=== PATIENT | male | born 1995 | race Caucasian/White ===

== ENCOUNTER 2022-01-06 16:34 | Inpatient (IN) ==
[2022-01-06 18:02] LABS: Basophils # 0.1 K/mcL (0.0-0.2); Basophils % 0.5 %; Eosinophils # 0.2 K/mcL (0.0-0.6); Eosinophils % 1.7 %; Hematocrit 53.7 % (37.5-50.1); Hemoglobin 18.4 g/dL (12.9-16.9); Immature Granulocytes % 0.3 % (0-4); Lymphocytes # 2.2 K/mcL (0.6-4.6); Lymphocytes % 23.6 %; Mean Corpuscular HGB Conc 34.3 g/dL (31.6-35.5); Mean Corpuscular Volume 84.6 fL (83.0-100.0); Mean Platelet Volume 11.5 fL (9.4-12.4); Monocytes # 0.7 K/mcL (0.0-1.3); Monocytes % 7.4 %; Neutrophils # 6.3 K/mcL (1.6-8.9); Platelet Count 286 K/mcL (140-400); Red Blood Count 6.35 M/mcL (4.19-5.50); Red Cell Distribution Width 12.5 % (11.5-14.5); Segmented Neutrophils % 66.5 %; White Blood Count 9.5 K/mcL (4.3-11.1)
[2022-01-06 18:10] LABS: Bacteria,Urine Few per hpf (None-Few); Bilirubin,Urine Small (Negative); Blood,Urine Negative (Negative); Clarity,Urine Clear (Clear); Color,Urine Dark-Yellow (Yellow); Glucose,Urine (UA) Normal (Normal); Ketones,Urine 20 mg/dL (Negative); Leukocyte Esterase,Urine Small (Negative); Mucus,Urine Many per lpf (None-Few); Nitrite,Urine Negative (Negative); Protein,Urine 200 mg/dL (Neg-Trace); RBC,Urine 0-3 per hpf (0-3); Specific Gravity,Urine > 1.030 (1.010-1.025); Squamous Epithelial Cell,Urine Few per hpf (None-Few); Urobilinogen,Urine >=8.0 mg/dL (Normal); WBC,Urine 0-3 per hpf (0-3)
[2022-01-06 18:16] LABS: Amphetamine Screen,Urine Negative ng/mL (Cutoff=1000); Barbiturate Screen,Urine Negative ng/mL (Cutoff=200); Benzodiazepines Screen,Urine Negative ng/mL (Cutoff=200); Cannabinoid Screen,Urine Positive ng/mL (Cutoff = 50); Cocaine Screen,Urine Negative ng/mL (Cutoff= 300); Opiate Screen,Urine Negative ng/mL (Cutoff=300); Phencyclidine Screen,Urine Negative ng/mL (Cutoff=25)
[2022-01-06 18:21] LABS: Acetaminophen < 10 mcg/mL (10-20); Alanine Aminotransferase 20 Units/L (7-52); Albumin/Globulin Ratio 1.7 (1.1-2.2); Alkaline Phosphatase 106 Units/L (34-104); Aspartate Amino Transferase 21 Units/L (13-39); BUN/Creatinine Ratio 12 (6-26); Bilirubin,Direct 0.2 mg/dL (0.0-0.2); Bilirubin,Indirect 0.9 mg/dL (0.0-1.0); Bilirubin,Total 1.1 mg/dL (0.3-1.0); Blood Urea Nitrogen 13 mg/dL (6-20); Calcium 10.1 mg/dL (8.6-10.3); Carbon Dioxide 28 mEq/L (23-29); Chloride 101 mEq/L (98-107); Chol/HDL Ratio 4.6 (0-4.9); Cholesterol 171 mg/dL (< 200); Ethanol < 10 mg/dL (Less than 10); Globulin 2.9 g/dL (2.4-3.5); Glucose 87 mg/dL (70-105); HDL Cholesterol 37 mg/dL (40-59); LDL Cholesterol,Calculated 108 mg/dL (< 100); Osmolality,Calculated 287 (280-300); Potassium 3.5 mEq/L (3.5-5.1); Salicylate < 2.5 mg/dL (15.0-30.0); Sodium 139 mEq/L (136-145); Total Protein 7.9 g/dL (6.4-8.9); Triglycerides 130 mg/dL (< 150); eGFR For African Americans > 60 (> 60); eGFR For Non-African Americans > 60 (> 60)
[2022-01-06] MEDS ORDERED: Nicotine 21 MG PATCH.TD24 TD SCH (19:15)
[2022-01-06 19:17] LABS: Estimated Average Glucose 111 mg/dl; Hemoglobin A1C 5.5 %
[2022-01-06 21:12] LABS: Influenza A PCR Negative (Negative); Influenza B PCR Negative (Negative); Resp. Syncytial Virus PCR Negative (Negative)
[2022-01-06 21:22] LABS: SARS-CoV-2 by PCR (In House) Negative (Negative)
[2022-01-06] MEDS ORDERED: Acetaminophen 325 MG TABLET PO PRN (21:35)
[2022-01-06] MEDS ORDERED: *HR* LORazepam 2 MG/ML VIAL IM PRN (21:35)
[2022-01-06] MEDS ORDERED: haloperidoL 5 MG TABLET PO PRN (21:35)
[2022-01-06] MEDS ORDERED: Haloperidol Lactate 5 MG/ML VIAL IM PRN (21:35)
[2022-01-06] MEDS ORDERED: *HR* LORazepam 1 MG TABLET PO PRN (21:35)
[2022-01-07] MEDS: hydrOXYzine pamoate 25 MG CAPSULE PO PRN ×2 (01:03→15:29)
[2022-01-07] MEDS: traZODone 50 MG TABLET PO PRN ×2 (01:03→21:22)
[2022-01-07] MEDS ORDERED: Mag Hydrox/Al Hydrox/Simeth 30 ML UDC PO PRN (08:03)
[2022-01-07] MEDS ORDERED: MOM Conc 10 ML UD.LIQ PO PRN (08:03)
[2022-01-07] MEDS: Nicotine 21 MG PATCH.TD24 TD SCH (09:34)
[2022-01-07] MEDS: BuPROPion XL (24 HR) 150 MG TABLET PO SCH (15:28)
[2022-01-08] MEDS: Nicotine 21 MG PATCH.TD24 TD SCH (09:15)
[2022-01-08] MEDS: hydrOXYzine pamoate 25 MG CAPSULE PO PRN (09:16)
[2022-01-08] MEDS: BuPROPion XL (24 HR) 150 MG TABLET PO SCH (09:16)
[2022-01-08 10:24] VITALS: BP 138/91; PULSE 66; TEMP 97; O2SAT 99
== END 2022-01-08 16:10 | disposition home or self-care (01) | DRG 885 ==
LOC: EMEROOARM 16:34 → 1ANU 21:37
PROVIDERS: ADMIT Psychiatry & Neurology Psychiatry; ATTEND Psychiatry & Neurology Psychiatry